=== PATIENT | female | born 1990 | race Caucasian/White ===

== ENCOUNTER 2017-03-03 10:03 | Emergency (ER) | payer MEDICARE, OTHER ==
[~2017-03-03] VITALS: Ht 139.7 cm; Wt 58.7 kg
[~2017-03-03 10:03] MED LIST: ATEN-100 PO; HYDR50TA5 PO; LEVO.075 PO; LORTA5 PO; NORE1TAB PO; TUMS500C PO; VITATAB25 PO
[2017-03-03 10:08] VITALS: BP 128/87; PULSE 105; RESP 18; TEMP 97.5; O2SAT 97
[2017-03-03] MEDS ORDERED: NORE-44 PO (10:56)
[2017-03-03] MEDS ORDERED: HYDR25TA5 PO (10:56)
[2017-03-03] MEDS ORDERED: ATEN50TA PO (10:56)
[2017-03-03] MEDS ORDERED: LEVO25TA4 PO (10:56)
[2017-03-03] MEDS ORDERED: MAGN1TAB14 PO (10:56)
[2017-03-03] MEDS ORDERED: ATEN25TA PO (10:56)
[2017-03-03] MEDS ORDERED: TUMS500C CHEW (10:56)
--- NOTE | 2017-03-03 11:11 | PD ---
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 Stats her knees tend to hyperextend and lock up and that's what happened yesterday around lunch time. She fell backwards onto her buttocks and did not hit her head. Denies any fever , chest pain, sob, n/v, abdominal pain, focal weakness or numbness. Took acetaminophen last night with improvement. Able to ambulate but with pain. PFSH Past Medical History Asthma: No Autoimmune Disease: No Blood Disorders: No Anxiety: Yes Depression: No Heart Rhythm Problems: No Cardiovascular Problems: Yes (HTN, TACHYCARDIA) Chest Pain: No Cystic Fibrosis: No Diminished Hearing: Yes Gastrointestinal Disorders: Yes Genetic Disorder: Yes (TURNERS SYNDROME) Genitourinary: Yes (INCONTINENT ) Headaches: No Hypertension: Yes Musculoskeletal: Yes (HX OF TURNERS SYNDROME/ EDEMA HANDS AND FEET AND FOLDS OF NECK) Neurologic: Yes (TURNERS SYNDROME) Psychiatric: Yes Reproductive: No Respiratory: Yes (HX OF BRONCHITIS AND PNEMONIA IN THE PAST) Seizures: Yes Sickle Cell Disease: No Sleep Apnea: No ?: Not : 0 Past Surgical History Abdominal Surgery: No Body Medical Devices: RUG WASHER SHUNT Cardiac Surgery: No Ear Surgery: No Endocrine Surgery: No Eye Surgery: Yes Genitourinary Surgery: Yes (URETHRA STRETCHED) Gynecologic Surgery: No Neurologic Surgery: Yes (RUG WASHER SHUNT) Oral Surgery: Yes Thoracic Surgery: No Other Surgery: Yes Social History Alcohol Use: No Tobacco Use: No Substance Use: No Allergies-Medications (Allergen,Severity, Reaction): Uncoded Allergies: MRI (Allergy, Severe, 02/05/11) Reported Meds & Prescriptions Reported Meds & Active Scripts Active Acetaminophen Extra Strength (Acetaminophen) 500 Mg Tab 500 Mg PO Q6H PRN Reported Magnesium 400 Mg Tab 400 Mg PO DAILY Levothyroxine (Levothyroxine Sodium) 25 Mcg Tab 25 Mcg PO DAILY Hydrochlorothiazide 25 Mg Tab 25 Mg PO DAILY Microgestin 1.5/30 (Norethindrone-Ethinyl Estradiol) 1.5-30 Mg-Mcg Tab 1 Tab PO DAILY Atenolol 25 Mg Tab 25 Mg PO DAILY Tums (Calcium Carbonate (Antacid)) 500 Mg Chew 500 Mg CHEW PRN Atenolol 50 Mg Tab 50 Mg PO DAILY Review of Systems Except as stated in HPI: all other systems reviewed are Neg Physical Exam Narrative GENERAL: 26yo F not in distress. SKIN: Focused skin assessment warm/dry. HEAD: Atraumatic. Normocephalic. CARDIOVASCULAR: Mildly elevated, states she has baseline tachycardia and this is her baseline. RESPIRATORY: No accessory muscle use. Clear to auscultation. Breath sounds equal bilaterally. GASTROINTESTINAL: Abdomen soft, non-tender, nondistended. MUSCULOSKELETAL: Left knee: +Mild ttp patella tendon. Mild swelling. No erythema. Negative anterior draw test. Good range of motion with full flexion and extension. Sensation intact. DP 2+. NEUROLOGICAL: Awake and alert. No obvious cranial nerve deficits. Motor grossly within normal limits. Normal speech. PSYCHIATRIC: Appropriate mood and affect; insight and judgment normal. Data Data Last Documented VS Vital Signs Date Time Temp Pulse Resp B/P Pulse Ox O2 Delivery O2 Flow Rate FiO2 03/03/17 10:08 97.5 105 18 128/87 97 Orders Knee, Ltd (1 Or 2vws) (03/03/17 ) Ibuprofen (Motrin) (03/03/17 11:15) [facility] Medical Decision Making Medical Screen Exam Complete: Yes Emergency Medical Condition: Yes Interpretation(s) Last Impressions Knee X-Ray 03/03/17 0000 Signed Impressions: Service Date/Time: Friday, March 03, 2017 11:19 - CONCLUSION: Negative limited 2 view study. Jatin Cooper MD Differential Diagnosis Fracture vs. contusion vs. ligamentous injury Narrative Course 26yo well appearing female here with left knee pain. Xray left knee is negative. However, pt keeps having these hyperextension injuries and should probably follow up with orthopedic surgeon as an outpatient for possible MRI to evaluate for possible ligamentous injury. Pt given ibuprofen and state pain has improved. Pt able to ambulate. Return precautions given. Diagnosis Primary Impression: Left knee pain Qualified Code: M25.562 - Acute pain of left knee Referrals: Clem Worrell MD as needed If knee pain persists. Patient Instructions: General Instructions Departure Forms: Tests/Procedures Additional Instructions: Please follow up with your PMD for possible orthopedic referral and MRI as outpatient. Return to the ED if your symptoms worsen. Med/Other Pt SpecificInfo: Prescription(s) given Scripts Acetaminophen (Acetaminophen Extra Strength)500 Mg Lug016 Mg PO Q6H PRN (PAIN SCALE 1 TO 4) #20 TAB Ref 0 Prov:Francine Urias DO 03/03/17 Francine Urias DO Mar 03, 2017 11:11
[2017-03-03] MEDS ORDERED: IBUPROFEN 400 MG TAB PO ONE (11:15)
--- NOTE | 2017-03-03 12:02 | RADHPO ---
EXAM DATE/TIME: 03/03/2017 11:19 [facility] COMPARISON: No previous studies available for comparison. INDICATIONS : Knee locked up yesterday. MEDICAL HISTORY : Hypertension. Turners Syndrome. SURGICAL HISTORY : CONTEMPORARY OR MODERN DANCER Shunt. ENCOUNTER: Initial ACUITY: 2 days PAIN SCORE: 4/10 LOCATION: Left Knee FINDINGS: Two view examination of the left knee demonstrates no evidence of fracture or dislocation. Bony mine ralization is normal. The suprapatellar soft tissues have a normal configuration. CONCLUSION: Negative limited 2 view study. Jatin Cooper MD on March 03, 2017 at 11:59 Board Certified Radiologist. This report was verified electronically.
[2017-03-03] MEDS ORDERED: ACET500T36 PO (12:30)
== END 2017-03-03 12:39 | disposition home or self-care (01) ==
LOC: PHEFT 10:03
DX: M25.562 Pain in left knee (principal); I10 Essential (primary) hypertension; H91.90 Unspecified hearing loss, unspecified ear; Q96.9 Turner's syndrome, unspecified; R00.0 Tachycardia, unspecified
CPT/HCPCS: 73560; 99283